=== PATIENT | male | born 1995 | race African-American/Black ===

== ENCOUNTER 2021-05-23 11:26 | Emergency (ER) | payer SELFPAY ==
[2021-05-23 11:32] VITALS: BP 167/109; PULSE 78; TEMP 97; BMI 32.1
== END 2021-05-23 13:22 | disposition home or self-care (01) ==
LOC: JER 11:26
DX: J06.9 Acute upper respiratory infection, unspecified (principal)
CPT/HCPCS: 71046-TC-FY; 99284-25; C9803; U0003; U0005